=== PATIENT | female | born 1945 | race Caucasian/White ===

== ENCOUNTER 2016-12-11 18:54 | Emergency (ER) | payer MEDICARE, MEDICAID ==
[~2016-12-11 18:54] MED LIST: ASPIRIN LOW DOS81 M2 PO; ATORVASTATIN CA20 MG PO; CALCIUM600 M1 PO; HUMALOG PEN100 MG/M1 SC; LEVOTHYROXIN75 MCG PO; LEVOTHYROXIN88 MC1 PO; LISINOPRIL20 MG PO; LISINOPRIL40 MG PO; LORTAB 5/3255 MG PO; NORCO1 TA2 PO; TOUJEO SOL300 UNIT/M SC; TURMERIC500 MG PO; ULTRAM50 M1 PO; VITAMIN B-122500 MCG SL; VITAMIN D32000 UNIT PO; XALATAN0.005 % OP; ZOFRAN ODT4 MG PO
[2016-12-11] MEDS ORDERED: [UNRECOGNIZED DRUG - OTHER] PO (19:18)
[2016-12-11] MEDS ORDERED: PERCOCET 5/325M1 TAB PO (23:52)
== END 2016-12-11 20:00 | disposition left against medical advice (07) ==
LOC: ED 18:54 → LWOBS 20:00
DX: Z91.19 Patient's noncompliance with other medical treatment and regimen (principal)

== ENCOUNTER 2016-12-11 20:55 | Emergency (ER) | payer MEDICARE, MEDICAID ==
[~2016-12-11] VITALS: Ht 154.9 cm; Wt 65.9 kg
[~2016-12-11 20:55] MED LIST changes: +[UNRECOGNIZED DRUG - OTHER] PO
[2016-12-11 22:19] LABS: HEMATOCRIT 38.2 % (37.0-47.0); HEMOGLOBIN 12.4 g/dl (12.0-16.0); IMMATURE GRANULOCYTES 0.4 % (0.0-1.0); MEAN CELL VOLUME 92.5 fL CALC (80.0-100.0); MEAN CORPUSCULAR HGB CONC 32.5 g/L CALC (32.0-36.0); NEUT# 8.28 thou/uL (2.00-7.15); RED BLOOD COUNT 4.13 mill/uL (4.20-5.60); RED CELL DISTRI WIDTH 12.3 % (11.5-15.5)
[2016-12-11 22:26] LABS: ALBUMIN 3.9 g/dL (3.2-5.0); ALKALINE PHOSPHATASE 131 u/l (38-126); ANION GAP 16 (6-22 (CALC)); BILIRUBIN, TOTAL 0.8 mg/dL (0.0-1.4); BUN 16 mg/dL (8-23); BUN/CREATININE RATIO 18 (12-20 (CALC)); CALCIUM 9.4 mg/dL (8.4-10.2); CARBON DIOXIDE 25 mmol/l (22-30); CHLORIDE 104 mmol/l (95-108); CREATININE 0.9 mg/dL (0.5-1.0); GFR > 60 ML/MIN (>=60 (CALC)); GFR FOR AFR.AMER. > 60 ML/MIN (>=60 (CALC)); GLUCOSE 241 mg/dL (82-115); POTASSIUM 4.4 mmol/l (3.5-5.1); SGOT/AST 19 u/l (9-36); SGPT/ALT 29 u/l (11-66); SODIUM 140 mmol/l (137-146); TOTAL PROTEIN 6.8 g/dL (6.3-8.2)
[2016-12-11 23:35] VITALS: BP 144/59
[2016-12-11] MEDS ORDERED: PERCOCET 5/325M1 TAB PO (23:52)
== END 2016-12-12 | disposition home or self-care (01) ==
LOC: ED 20:55
PROVIDERS: Emergency Medicine
DX: S99.912A Unspecified injury of left ankle, initial encounter (principal); E11.649 Type 2 diabetes mellitus with hypoglycemia without coma; I12.9 Hypertensive chronic kidney disease with stage 1 through stage 4 chronic kidney disease, or unspecified chronic kidney disease; E11.22 Type 2 diabetes mellitus with diabetic chronic kidney disease; N18.9 Chronic kidney disease, unspecified; E03.9 Hypothyroidism, unspecified; E78.00 Pure hypercholesterolemia, unspecified; W18.39XA Other fall on same level, initial encounter; Y92.009 Unspecified place in unspecified non-institutional (private) residence as the place of occurrence of the external cause

== ENCOUNTER → 2018-04-28 | Outpatient (REF) | payer MEDICARE, MEDICAID ==
[~2018-04-28] MED LIST changes: +PERCOCET 5/325M1 TAB PO
== END | disposition home or self-care (01) ==
LOC: MAMMO 11:09
PROVIDERS: ATTEND Nurse Practitioner
DX: Z12.31 Encounter for screening mammogram for malignant neoplasm of breast (principal)

== ENCOUNTER → 2018-09-10 | Outpatient (REF) | payer MEDICARE, MEDICAID ==
[2018-09-10 10:22] LABS: ALBUMIN 3.7 g/dL (3.2-5.0); ALKALINE PHOSPHATASE 93 u/l (38-126); ANION GAP 13 (6-22 (CALC)); BILIRUBIN, TOTAL 0.8 mg/dL (0.0-1.4); BUN 20 mg/dL (8-23); BUN/CREATININE RATIO 17 (12-20 (CALC)); CARBON DIOXIDE 27 mmol/l (22-30); CHLORIDE 104 mmol/l (95-108); CREATININE 1.2 mg/dL (0.5-1.0); GFR 44 ML/MIN (>=60 (CALC)); GFR FOR AFR.AMER. 53 ML/MIN (>=60 (CALC)); POTASSIUM 4.2 mmol/l (3.5-5.1); SGOT/AST 21 u/l (9-36); SODIUM 140 mmol/l (137-146); TOTAL PROTEIN 6.3 g/dL (6.3-8.2)
[2018-09-10 10:52] LABS: TSH, 3RD GENERATION 2.68 uIU/mL (0.47 - 4.68)
== END | disposition home or self-care (01) ==
LOC: LAB 09:44
PROVIDERS: ATTEND Nurse Practitioner
DX: R79.89 Other specified abnormal findings of blood chemistry (principal); E03.9 Hypothyroidism, unspecified